=== PATIENT | female | born 1980 | race Caucasian/White ===

== ENCOUNTER 2016-09-07 07:44 | Day surgery (SDC) | payer OTHER ==
[2016-09-04 15:16] VITALS: BMI 27.4
[~2016-09-07 07:44] MED LIST: LEVOFLOXACIN 500 MG PREMIX BAG IVPB ONE
[2016-09-07] MEDS ORDERED: MIDAZOLAM HCL 2 MG/2 ML SINGLE DOSE VIAL ONE ×2 (09:50)
[2016-09-07] MEDS ORDERED: LEVOFLOXACIN 500 MG PREMIX BAG IVPB ONE (09:55)
[2016-09-07] MEDS ORDERED: DEXAMETHASONE SOD PHOSPHATE 4 MG/1 ML VIAL ONE (09:58)
[2016-09-07 10:44] VITALS: TEMP 97.7
[2016-09-07] MEDS ORDERED: PROMETHAZINE HCL 25 MG/1 ML VIAL IVPUSH PRN (11:10)
[2016-09-07] MEDS ORDERED: oxyCODONE HCL 5 MG TABLET PO PRN (11:10)
[2016-09-07] MEDS ORDERED: ONDANSETRON 4 MG/2 ML VIAL IVPUSH PRN (11:10)
--- NOTE | 2016-09-07 11:11 | OP ---
Operative Note - Note: Operative Date: 09/07/16 Pre-Operative Diagnosis: RIGHT RENAL STONE Operation: right ESWL Findings: 7 mm right renal stone Post-Operative Diagnosis: Same as Pre-op Anesthesia: General
[2016-09-07] MEDS ORDERED: LACTATED RINGERS SOLUTION 1,000 ML IV SCH (11:15)
--- NOTE | 2016-09-07 12:10 | OP ---
Operative Note - Note: Operative Date: 09/07/16 Pre-Operative Diagnosis: right renal stone Operation: right eswl Findings: 7 mm right renal stone
[2016-09-07 14:04] VITALS: BP 132/79; PULSE 80
--- NOTE | 2016-09-08 09:00 | OP ---
DATE OF OPERATION: 09/07/2016 PREOPERATIVE DIAGNOSIS: Right renal stone. POSTOPERATIVE DIAGNOSIS: Right renal stone. PROCEDURE: Right extracorporeal shock wave lithotripsy. ATTENDING: Arina Young MD ANESTHESIA: General. OPERATION: The patient was brought in the operating room, placed in supine position on the operating room table. Ultrasonography and fluoroscopy were initially performed. A 7-mm right mid pole stone was identified. At this point, general anesthesia was administered as was preoperative surgical prophylaxis antibiotics. Levaquin was the antibiotic chosen. At this point, with general anesthesia administered, 2500 impulses at 17 joules of power were administered to the stone. Excellent fragmentation was noted on real time ultrasonography and fluoroscopy. Patient tolerated the procedure very well. The disposition of the patient was to the recovery room. ARINA YOUNG M.D. /[id number]
== END 2016-09-07 13:40 | disposition home or self-care (01) ==
LOC: JASU-SURG 07:44
PROVIDERS: ATTEND Urology
PROC: 0TF3XZZ Fragmentation in Right Kidney Pelvis, External Approach (ICD-10-PCS; principal; 2016-09-07 09:30)
DX: N20.0 Calculus of kidney (principal)
CPT/HCPCS: 84703; 94760

== ENCOUNTER 2017-09-20 14:45 | Day surgery (SDC) | payer OTHER ==
[2017-09-17 13:37] VITALS: BMI 27.4
[2017-09-20 15:29] VITALS: TEMP 97.8
[2017-09-20] MEDS ORDERED: KETOROLAC TROMETHAMINE 30 MG/1 ML VIAL ONE (18:21)
[2017-09-20] MEDS ORDERED: MIDAZOLAM HCL 2 MG/2 ML SINGLE DOSE VIAL ONE ×2 (18:22)
--- NOTE | 2017-09-20 18:31 | OP ---
Operative Note - Note: Operative Date: 09/20/17 Pre-Operative Diagnosis: R kidney stone Operation: Rkidney ESWL Findings: as pre op Post-Operative Diagnosis: Same as Pre-op Surgeon: Talat Rousseau Anesthesia: Fractional
[2017-09-20 20:59] VITALS: BP 120/79; PULSE 70
== END 2017-09-20 20:30 | disposition home or self-care (01) ==
LOC: JASU-SURG 14:45
PROVIDERS: ATTEND Urology
PROC: 0TF3XZZ Fragmentation in Right Kidney Pelvis, External Approach (ICD-10-PCS; principal; 2017-09-20 17:45)
DX: N20.0 Calculus of kidney (principal)
CPT/HCPCS: 84703